=== PATIENT | male | born 1950 | race Caucasian/White ===

== ENCOUNTER → 2016-06-11 08:08 | Outpatient (CLI) | payer MEDICARE ==
[2013-10-10 10:53] VITALS: BMI 26.5
[~2016-06-11 08:08] MED LIST: BAYER CHEWABLE81 MG PO; CARDURA4 MG PO; CELEBREX200 MG PO; DURAGESIC1 PATCH .3 TD; HYDROCODONE-APA1 TAB PO; LEXAPRO10 MG PO; LIPITOR40 MG PO; NORCO 10/325 TA1 TA1 PO; PLAVIX75 MG PO
[2016-06-19 07:24] VITALS: BMI 27.2
== END | disposition home or self-care (01) ==
LOC: D.RAD 08:08
DX: S83.242A Other tear of medial meniscus, current injury, left knee, initial encounter (principal)

== ENCOUNTER 2016-06-19 06:55 | Day surgery (SDC) | payer MEDICARE ==
[2016-06-18 11:05] LABS: HEMATOCRIT 43.8 % (42.0-54.0); HEMOGLOBIN 13.7 g/dL (13.5-17.5); MCH 28.7 pg (26.0-34.0); MCHC 31.3 g/dL (31.0-37.0); MCV 91.6 fL (80.0-100.0); MEAN PLATELET VOLUME 10.4 fL (7.4-10.4); RBC 4.78 10x6/uL (4.20-6.10); RDW 12.1 % (11.5-14.5); WBC 5.6 10x3/uL (4.8-10.8)
[~2016-06-19] VITALS: Ht 182.9 cm; Wt 90.7 kg
[~2016-06-19 06:55] MED LIST changes: -HYDROCODONE-APA1 TAB PO
[2016-06-19 07:24] VITALS: BP 169/78; Ht 182.9 cm; Wt 90.7 kg
[2016-06-19] MEDS ORDERED: HYDROCODONE-APA1 TAB PO (09:46)
--- NOTE | 2016-06-19 11:52 | NUR ---
IV DC WITH CATHER TIP INTACT
--- NOTE | 2016-06-20 14:00 | OP ---
PATIENT NAME: PABLO OTOOLE MEDICAL RECORD: [id number] :46 LOCATION:[facility] ADMISSION DATE: SURGEON: IGNACIO BELTRAN MD DATE OF OPERATION: 06/19/2016 Orthopedic Surgery Operative Note PREOPERATIVE DIAGNOSIS: Medial meniscus tear of the left knee with large Boudreaux's cyst. POSTOPERATIVE DIAGNOSES: 1. Medial meniscus tear of the left knee. 2. Lateral meniscus tear of the left knee. 3. Boudreaux's cyst of the left knee. PROCEDURE: 1. Arthroscopic partial medial meniscectomy. 2. Arthroscopic partial lateral meniscectomy, left knee. 3. Manual decompression of the Boudreaux's cyst percutaneously. OPERATIVE SUMMARY IN DETAIL: After obtaining the appropriate preoperative orthopedic surgery consent as well as anesthetic consultation, evaluation and clearance, the patient was brought to the operating room and placed on the operating table in supine position. After general laryngeal mask was administered, tourniquet was placed about the proximal aspect of the left lower extremity. Left lower extremity was then prepped and draped in routine sterile fashion. Leg was elevated and exsanguinated, tourniquet inflated to 350 mmHg. Routine inferolateral portal was established followed by superior medial portal and diagnostic arthroscopy revealed the patient to have a complex tear of the posterior horn of medial meniscus. Attempts at expressing the Boudreaux's cyst at this point were fruitless, the knee was then placed in the [id number] position where the patient was found to have a very complex tear of the posterior horn of the lateral meniscus. This was debrided. 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 After debridement, again, attempts to express this Boudreaux's cyst were fruitless. At this point, through a direct popliteal approach, the Boudreaux's cyst was decompressed using an 18-gauge needle with expression of approximately 20 cc of thick synovial fluid. Having completed this, arthroscopy portals were closed in routine interrupted fashion using 4-0 Prolene. The knee was injected with 30 cc of 0.25% Marcaine with epinephrine and 80 mg of Depo-Medrol. Sterile dressings were applied. Tourniquet was deflated. The patient was awakened, taken to recovery room in stable condition. All final needle and sponge counts were correct. TRANSINT:[id number] Voice Confirmation ID: [id number] DOCUMENT ID: [id number] IGNACIO BELTRAN MD at 1400 CC: [id number] DICTATION DATE: 06/19/16 0950 LEAD MOBILE DEVELOPER: 06/19/16 1228 [facility] 06/19/[id number] [place] [address]
== END 2016-06-19 12:00 | disposition home or self-care (01) ==
LOC: D.OPS 06:55 → D.PAN 08:15 → D.OPS 12:00
PROVIDERS: Anesthesiology
DX: S83.232A Complex tear of medial meniscus, current injury, left knee, initial encounter (principal); S83.282A Other tear of lateral meniscus, current injury, left knee, initial encounter; M94.262 Chondromalacia, left knee; M71.22 Synovial cyst of popliteal space [Baker], left knee

== ENCOUNTER 2016-10-13 08:45 | Day surgery (SDC) | payer MEDICARE ==
[2016-10-10 15:59] LABS: HEMATOCRIT 42.9 % (42.0-54.0); HEMOGLOBIN 13.5 g/dL (13.5-17.5); MCH 28.6 pg (26.0-34.0); MCHC 31.5 g/dL (31.0-37.0); MCV 90.9 fL (80.0-100.0); MEAN PLATELET VOLUME 11.1 fL (7.4-10.4); RBC 4.72 10x6/uL (4.20-6.10); RDW 12.4 % (11.5-14.5)
[~2016-10-13] VITALS: Ht 182.9 cm; Wt 90.7 kg
--- NOTE | ~2016-10-13 | OP ---
PATIENT NAME: PABLO OTOOLE MEDICAL RECORD: [id number] :48 [facility] DATE: SURGEON: IGNACIO BELTRAN MD DATE OF OPERATION: 10/13/2016 PREOPERATIVE DIAGNOSES: Rotator cuff tear of the right shoulder with impingement syndrome and acromioclavicular arthritis. POSTOPERATIVE DIAGNOSES: Rotator cuff tear of the right shoulder with impingement syndrome, acromioclavicular arthritis and severe biceps tendinitis. PROCEDURES: 1. Arthroscopic rotator cuff repair. 2. Arthroscopic biceps tenodesis. 3. Arthroscopic subacromial decompression, acromioplasty and bursectomy. 4. Arthroscopic distal clavicle excision done through separate incision. SURGEON: Ignacio Beltran MD. ANESTHESIA: General. INTRAOPERATIVE COMPLICATIONS: None. SUMMARY OF PATHOLOGIC FINDINGS: The patient had a full thickness rotator cuff tear with medial retraction and severe biceps tendinitis, acromioclavicular arthritis as well as a type III downward sloping acromion consistent with the diagnosis of longstanding impingement. OPERATIVE SUMMARY IN DETAIL: After obtaining the appropriate preoperative orthopedic surgery consent as well as anesthetic consultation, evaluation and clearance, the patient was brought to the operating room and placed on table in supine position. After adequate general laryngeal mask airway was administered, the patient was placed in lateral decubitus position. All pressure points were well padded to include down leg peroneal pad as well as axillary roll. The patient was held firmly to the operating table using the vacuum pack suction system. Right upper extremity and shoulder were prepped and draped in a routine sterile fashion. The arm was held in the Arthrex traction boom at 30 degrees of forward flexion, 30 degrees of abduction, 10 pounds of traction laterally. Arthroscopy was established in the glenohumeral joint from a posterior portal. Anterior portal was established in the anterior safe interval. Diagnostic arthroscopy revealed the above findings. Accessory transrotator cuff portal was created through which the labrum was debrided. Biceps tendon was cut and held in place with a spinal needle. The rotator cuff tear was debrided on the undersurface and the greater tuberosity tendinous footprint was decorticated using a resector. Attention then turned to the subacromial space. While on the subacromial space, surface tissue ablation system was utilized to denude the undersurface of the acromion of all soft tissue. A 5-0 barrel radha was used to perform acromioplasty at the level of acromioclavicular joint. Through a separate anterior arthroscopic portal under direct arthroscopic visualization, 1 cm of distal clavicle was taken down. Having completed this, attention was turned to the rotator cuff, double row fixation was achieved using the Arthrex double row system, that is a crisscrossing box of #2 FiberTape with PushLocks medially and laterally. This was augmented by further use of the suture on the back of the lateral row for direct ofni-ls-lohu reapproximation of the augmented double row repair. After this, attention was turned to the biceps tenotomy. A OPERATIVE REPORT [id number] PABLO OTOOLE S size 9 hole was created for this very large biceps tendon over the guide pin and then using the fork tip SwiveLock, the size 9 Bio-Tenodesis screw was deployed resulting in good fixation of the biceps tendon. Having completed this, arthroscopy portals were closed in routine interrupted fashion using 4-0 Prolene.. Sterile dressings were applied. The patient was awakened, taken to recovery in stable condition. All final needle and sponge counts were correct. TRANSINT:[id number] Voice Confirmation ID: [id number] DOCUMENT ID: [id number] RUBY BENNETT, IGNACIO CHANDLER CC: [id number] DICTATION DATE: 10/13/16 140 PC TECH: 10/14/16 0138 [facility] 10/13/16 [facility] [address] [id number]
[~2016-10-13 08:45] MED LIST changes: +FLOMAX0.4 MG PO; +HYDROCODONE-APA1 TAB PO; +PERCOCET 10/3251 TA1 PO
[2016-10-13 09:20] VITALS: BP 137/87; Ht 182.9 cm; Wt 90.7 kg
[2016-10-13] MEDS ORDERED: HYDROCODONE-APA1 TAB PO (14:01)
== END 2016-10-13 16:05 | disposition home or self-care (01) ==
LOC: D.OPS 08:45 → D.PAN 12:30 → D.OPS 16:05
PROVIDERS: Anesthesiology
DX: M75.121 Complete rotator cuff tear or rupture of right shoulder, not specified as traumatic (principal); M75.41 Impingement syndrome of right shoulder; M13.811 Other specified arthritis, right shoulder; M75.21 Bicipital tendinitis, right shoulder; Z01.812 Encounter for preprocedural laboratory examination

== ENCOUNTER → 2017-01-21 08:51 | Outpatient (CLI) | payer MEDICARE ==
[2016-10-13 09:20] VITALS: BMI 27.2
== END | disposition home or self-care (01) ==
LOC: D.US 08:51
DX: I71.4 Abdominal aortic aneurysm, without rupture (principal); I65.23 Occlusion and stenosis of bilateral carotid arteries

== ENCOUNTER → 2017-05-12 12:12 | Outpatient (CLI) | payer MEDICARE ==
[2016-10-13 09:20] VITALS: BMI 27.2
== END | disposition home or self-care (01) ==
LOC: D.CT 05-08 11:30
DX: I65.23 Occlusion and stenosis of bilateral carotid arteries (principal)

== ENCOUNTER → 2018-04-05 12:49 | Outpatient (CLI) | payer MEDICARE ==
[2017-06-12 11:41] VITALS: BMI 25.8
== END | disposition home or self-care (01) ==
LOC: D.CT 12:49
DX: I71.4 Abdominal aortic aneurysm, without rupture (principal)

== ENCOUNTER → 2018-05-28 13:10 | Outpatient (CLI) | payer MEDICARE ==
[2017-06-12 11:41] VITALS: BMI 25.8
== END | disposition home or self-care (01) ==
LOC: D.US 13:10
DX: I65.23 Occlusion and stenosis of bilateral carotid arteries (principal)

== ENCOUNTER → 2018-06-07 09:24 | Outpatient (CLI) | payer MEDICARE ==
[2017-06-12 11:41] VITALS: BMI 25.8
== END | disposition home or self-care (01) ==
LOC: D.CT 09:24
DX: I65.23 Occlusion and stenosis of bilateral carotid arteries (principal)

== ENCOUNTER 2019-01-26 05:12 | Day surgery (SDC) | payer MEDICARE ==
[~2019-01-26] VITALS: Ht 182.9 cm; Wt 80.6 kg
[2019-01-26] VITALS (20 sets, daily range): BP systolic 111–165; BP diastolic 58–83; Ht 182.9 cm; Wt 80.6 kg
--- NOTE | ~2019-01-26 | OP ---
PATIENT NAME: PABLO OTOOLE MEDICAL RECORD: [id number] :46 LOCATION:[facility] ADMISSION DATE: SURGEON: ANJU BRYANT MD DATE OF OPERATION: 01/26/2019 SURGEON: Anju Bryant MD ANESTHESIA: General, Dr. Argueta. OPERATION PERFORMED: Pacemaker lead revision, ventricular. PREOPERATIVE DIAGNOSIS: Bradycardia ventricular lead dysfunction. POSTOPERATIVE DIAGNOSIS: Bradycardia ventricular lead dysfunction. INDICATION FOR OPERATION: The pacemaker lead dysfunction. FINDINGS OF THE OPERATION: Pacemaker lead dysfunction. The lead was moved to the apex of the right ventricle. ESTIMATED BLOOD LOSS: Less than 2 mL. DESCRIPTION OF PROCEDURE: After informed consent, adequate preoperative medication evaluation, the patient was brought to the operating room, placed on the table in the supine position. After induction of general anesthesia and application of appropriate monitoring devices, left chest was prepped and draped in a sterile field, utilizing Betadine scrub, alcohol, and Betadine solution. Betadine-impregnated drape was also used, 1% lidocaine was infiltrated in the previous incision as well as the pulse generator pocket. An incision was made and carried down to the pocket. The pocket was opened. The pacemaker was removed. The atrial lead was not sutured tightly into position. This had to be revised and resutured. The atrial lead remained in good position throughout the procedure. The ventricular lead was then mobilized and a stylet introduced. The coil was retracted and a curved stylet was then used to manipulate the lead into the apex of the right ventricle. The helix was deployed and tested. The lead was in good position. The lead was then secured. The leads were then connected to the pulse generator, placed in the pocket and secured. Pocket was irrigated with copious amounts of antibiotic solution and normal saline. Instrument count and sponge counts were correct times 2. Pocket was closed in layers utilizing 3-0 Vicryl on deep subcutaneous tissue, 3-0 Vicryl on superficial subcutaneous tissue, and skin approximated with 5-0 subcuticular Monocryl. Sterile dressings were applied. The pacemaker check was satisfactory and the patient transferred to post-anesthesia recovery in satisfactory condition. LEAD ANALYSIS: Atrial lead impedance 399 ohms. The threshold atrial 0.75 volts. Ventricular lead resistance 570 ohms, threshold 0.5 volts, R-wave 15.5. TRANSINT:[id number] Voice Confirmation ID: [id number] DOCUMENT ID: [id number] OPERATIVE REPORT [id number] PABLO OTOOLE EDWARD MD CC: [id number] DICTATION DATE: 01/26/19919 MOLECULAR BIOLOGY DIRECTOR: 01/26/19 1529 [facility] [address] [id number]
[2019-01-26 05:37] LABS: HEMATOCRIT 42.6 % (42.0-54.0); HEMOGLOBIN 13.7 g/dL (13.5-17.5); MCH 28.5 pg (26.0-34.0); MCHC 32.2 g/dL (31.0-37.0); MCV 88.6 fL (80.0-100.0); MEAN PLATELET VOLUME 10.2 fL (7.4-10.4); RBC 4.81 10x6/uL (4.20-6.10); RDW 12.9 % (11.5-14.5); WBC 5.8 10x3/uL (4.8-10.8)
[2019-01-26 05:44] LABS: CALC OSMOLALITY 288 mosm/kg (275-300); CARBON DIOXIDE 37.1 mmol/L (21.0-32.0); CHLORIDE - SERUM 104 mmol/L (98-107); CREATININE - SERUM 0.9 mg/dL (0.6-1.3); GLUCOSE 107 mg/dL (74-106); SODIUM 144 mmol/L (136-145); UREA NITROGEN 19 mg/dL (7-18); eGFR NON AFRICAN AMERICAN 89 mL/min (90-120)
[2019-01-26 05:48] LABS: APTT 30.1 SECONDS (22.8-39.4); INR 1.07 (0.85-1.17); PROTIME 13.4 SECONDS (11.6-15.0)
[2019-01-26] MEDS ORDERED: CRESTOR40 MG PO (06:31)
[2019-01-26] MEDS ORDERED: COREG6.25 MG PO (06:32)
[2019-01-26] MEDS ORDERED: NEXIUM40 MG PO (06:32)
[2019-01-26] MEDS ORDERED: NORVASC5 MG PO (06:33)
[2019-01-26] MEDS ORDERED: LASIX40 MG PO (06:45)
--- NOTE | 2019-01-26 10:29 | NUR ---
0930 PT RECIEVED TO ROOM FROM RECOVERY ALERT, O2 2L NC, L CHEST DRESSING CDI, PPM CAPURING APPROPRIATELY ON MONITOR HR 60, L AC PIC SL, L ARM IN SLING, AWARE OF MOVEMENT PARAMETERS UPDATED BY DR MAGDALENO AND AT BEDSIDE ALARMS SET, WILL CONTINUE TO MONITOR
--- NOTE | 2019-01-26 10:48 | NUR ---
HOME MEDS TAKEN TO PHARMACY AT 1000 AND AWAITING LABELING
--- NOTE | 2019-01-26 13:30 | NUR ---
PER DR MAGDALENO GIVING HOME MEDS PT TAKES AT HOME, PT DID NOT BRING FENTANYL PATCH AND ISNT COMING BACK THIS EVENING SO SPOKE WITH NESHA HAYES NURSE AND PTS AND BOTH OKAYED TO PULL FENTANYL PATCH FROM PYXIS AT BEDTIME
--- NOTE | 2019-01-26 17:53 | NUR ---
1200 ATE 75% LUNCH 1700 ATE 100% DINNER, TOLERATED WELL, UP SITTING ON SIDE OF BED
--- NOTE | 2019-01-26 19:00 | NUR ---
REPORT RECEIVED FROM DAYSSDFT NURSE. PT IS LAYING IN BED WATCHING TV AT THIS TIME. DRESSING IS CDI. PT DENIES NEEDS AT THIS TIME. INITIAL ASSESSMENT COMPLETED, SEE FLOWSHEET FOR DETAILS. NO SIGNS OF ACUTE DISTRESS. WILL CONTINUE TO MONITOR.
--- NOTE | 2019-01-26 21:00 | NUR ---
PT IS LAYING IN BED WATCHING TV AT THIS TIME. NEEDS DENIED. NO SIGNS OF ACUTE DISTRESS. WILL CONTINUE TO MONITOR.
--- NOTE | 2019-01-26 23:00 | NUR ---
REASSESSMENT COMPLETED, SEE FLOWSHEET FOR DETAILS. PT IS LAYING IN BED WATCHING TV AT THIS TIME. NO NEEDS VOICED. NO SIGNS OF ACUTE DISTRESS. WILL CONTINUE TO MONITOR.
[2019-01-27] VITALS (7 sets, daily range): BP systolic 156–198; BP diastolic 53–95
--- NOTE | 2019-01-27 01:00 | NUR ---
PT IS LAYING IN BED WITH EYES CLOSED AT THIS TIME. NO NEEDS VOICED, NO SIGNS OF ACUTE DISTRESS. WILL CONTINUE TO MONITOR.
--- NOTE | 2019-01-27 03:00 | NUR ---
REASSESSMENT COMPLETED, SEE FLOWSHEET FOR DETAILS. PT IS LAYING IN BED WITH EYES CLOSED. NO NEEDS VOICED AT THIS TIME. NO SIGNS OF ACUTE DISTRESS NOTED. WILL CONTINUE TO MONITOR.
--- NOTE | 2019-01-27 05:00 | NUR ---
PT IS LAYING IN BED WATCHING TV AT THIS TIME. NO NEEDS VOICED. NO SIGNS OF ACUTE DISTRESS. WILL CONTINUE TO MONITOR.
--- NOTE | 2019-01-27 07:29 | NUR ---
PT BP 194/84, DR MAGDALENO CALLED AND OKAYED TO GIVE AM MEDS EARLY
--- NOTE | 2019-01-27 07:38 | NUR ---
0700 PT RECIEVED UP IN CHAIR ALERT AND ORIENTED ON ROOM AIR HR 60 PACED APPROPRIATELY, L AC PIV SL, L ARM IN SLING, L CHEST DRESSING CDI, CONTINENT, DENIES ALL NEEDS
--- NOTE | 2019-01-27 10:18 | NUR ---
DC INSTRUCTIONS REVIEWED BY NESHA HAYES NURSE AND MYSELF, PT DENIES ALL QUESTIONS, WAITING ON RIDE
--- NOTE | 2019-01-27 11:32 | NUR ---
piv dcd and pt taken to car with son by taylor pacheco rn
== END 2019-01-27 11:25 | disposition home or self-care (01) ==
LOC: D.OPS 05:12 → D.CVICU 09:13 → D.OPS 01-27 11:25
PROVIDERS: ATTEND Internal Medicine Cardiovascular Disease
DX: T82.110A Breakdown (mechanical) of cardiac electrode, initial encounter (principal); R00.1 Bradycardia, unspecified